=== PATIENT | female | born 1965 | race Caucasian/White ===

== ENCOUNTER → 2017-02-22 | Outpatient (CLI) | payer OTHER ==
[2017-02-22 17:28] LABS: HEMATOCRIT 41.1 % (33.0-46.0); HEMOGLOBIN 13.9 g/dL (10.0-15.0); MCH 29.3 pg (27.0-34.0); MCHC 33.8 gm/dL (32.0-36.5); MCV 86.7 fl (83.0-98.0); MPV 10.3 fl (9.4-12.4); RBC 4.74 M/uL (3.50-5.50); RDW-CV 13.3 % (11.9-14.6)
== END ==
LOC: LGSMG 17:23
PROVIDERS: Internal Medicine
DX: R53.83 Other fatigue (principal)

== ENCOUNTER → 2017-04-08 | Outpatient (CLI) | payer OTHER | END | disposition disaster alternative care site (69) | LOC: GBCOE 07:21 | DX: Z12.31 Encounter for screening mammogram for malignant neoplasm of breast (principal) | CPT/HCPCS: G0202 ==